=== PATIENT | male | born 1985 | race African-American/Black ===

== ENCOUNTER 2021-03-02 01:11 | Emergency (ER) | payer OTHER, SELFPAY ==
--- NOTE | ~2021-03-02 | XR_ITS ---
EXAMINATION: XR CHEST CLINICAL INFORMATION: Cough COMPARISON: None TECHNIQUE: Frontal view of the chest was obtained. FINDINGS: Lung volumes are symmetric. No focal consolidation is seen. No evidence of pneumothorax, pleural effusion, or pulmonary edema. The cardiomediastinal contour is unremarkable. No acute osseous findings are seen. XR/XR chest 1V IMPRESSION: No acute cardiopulmonary findings.
[2021-03-02 02:01] VITALS: BP 150/104; PULSE 95; RESP 18; TEMP 37.2; O2SAT 97; BMI 24.3
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
[2021-03-02 02:26] LABS: COVID-19 Test Negative (Negative); IDNOW Serial# 9DD0AD1C
--- NOTE | 2021-03-02 04:08 | PC.NURSE ---
PT IN NO DISTRESS, HAS BEEN SLEEPING FOR THE PAST FEW HOURS, WHILE AWAITING TEST RESULTS.
== END 2021-03-02 04:18 | disposition home or self-care (01) ==
PROVIDERS: Emergency Provider Emergency Medicine
DX: B34.9 Viral infection, unspecified (principal); Z20.822 Contact with and (suspected) exposure to COVID-19
CPT/HCPCS: 36415; 71045; 87635; 99283